=== PATIENT | female | born 1935 | race Caucasian/White ===

== ENCOUNTER 2017-03-01 17:20 | Emergency (ER) | payer MEDICARE, OTHER ==
--- NOTE | 2017-03-01 17:27 | EDM.PDOC ---
ED HPI GENERAL MEDICAL PROBLEM - General Chief Complaint: Respiratory Problem Stated Complaint: R LEG SWELLING/SOB Time Seen by Provider: 03/01/17 17:28 Source of Information: Reports: Patient, Family History Limitations: Reports: No Limitations - History of Present Illness INITIAL COMMENTS - FREE TEXT/NARRATIVE: 81-year-old female is brought to the hospital by family members are concerned about her. They identified that she is limping today and complaining of pain in her right calf and leg. When they elected her leg and it is edematous and swollen much more so than the left side. She's also complaining of increased shortness of breath on exertion. 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 She is on Coumadin chronically. I presume this is for atrial fibrillation. Family has no indication that she's ever had congestive heart failure symptoms. She did have her Coumadin time her PT/INR checked at the clinic this morning but did not receive the results. She's been going about every 3 weeks because of changes needed in dosing. She denies cough or sputum production. She denies fever or chills. No denies any orthopnea. Her concern is pain in her right leg and foot. Onset: Gradual (sounds like the problem is been going on for the last 3 days just getting worse.) Onset Date: 03/05/17 Duration: Day(s): Location: Reports: Lower Extremity, Right (foot and ankle.), Other (shortness of breath) Quality: Reports: Ache, Burning, Throbbing Severity: Moderate (right foot) Improves with: Reports: Rest (an elevation) Worsens with: Reports: Other Context: Denies: Activity, Exercise, Lifting, Sick Contact, Trauma, Other Associated Symptoms: Reports: Malaise, Shortness of Breath. Denies: No Other Symptoms, Confusion, Chest Pain, Cough, cough w sputum, Diaphoresis, Fever/ Chills, Headaches, Nausea/Vomiting, Rash, Seizure (on exertion), Weakness Treatments BRUSH OR BROOM CUTTER: Reports: Other (see below) (none.) - Related Data Allergies Allergy/AdvReac Type Severity Reaction Status Date / Time No Known Allergies Allergy Verified 09/04/15 08:33 Home Meds: Home Meds Calcium Carbonate [Calcium] 500 mg PO TID 09/04/15 [History] Lisinopril/Hydrochlorothiazide [Lisinopril-Hctz 20-25 mg Tab] 20 - 25 mg PO DAILY 09/04/15 [History] Furosemide [Lasix] 20 mg PO DAILY #30 tablet 03/01/17 [Rx] Red Yeast Rice 1 tab PO DAILY 03/01/17 [History] Warfarin [Coumadin] 2.5 mg PO SUTUTHSA 03/01/17 [History] Warfarin [Coumadin] 5 mg PO MOWEFR 03/01/17 [History] Past Medical History Cardiovascular History: Reports: Hypertension, [place], Pacemaker Other Cardiovascular History: Pacemaker Musculoskeletal History: Reports: Back Pain, Chronic (knees hips lower spine.), Osteoarthritis - Past Surgical History Head Surgeries/Procedures: Reports: None Other HEENT Surgeries/Procedures: Pt wears glasses. Social & Family History - Family History Cardiac: Reports: Hypertension Other Cardiac Family History: Pt states son has heart problems. - Tobacco Use Smoking Status *Q: Never Smoker Second Hand Smoke Exposure: No - Recreational Drug Use Recreational Drug Use: No - Living Situation & Occupation Living situation: Reports: , Alone Occupation: Retired ED ROS GENERAL - Review of Systems Review Of Systems: See Below Constitutional: Reports: Fatigue. Denies: Fever, Chills, Malaise, Weakness, Night Sweats, Diaphoresis, Decreased Appetite (increasing fatigue on minimal exertion.), Weight Loss HEENT: Reports: No Symptoms Respiratory: Reports: Shortness of Breath. Denies: Wheezing, Pleuritic Chest Pain (seems to be a little bit worse the last several days.), Cough, Sputum, Hemoptysis Cardiovascular: Reports: Blood Pressure Problem, Dyspnea on Exertion, Edema ( both lower extremities mildly. Right much more the last 3-4 days. It's only a little bit better when she wakes up in the morning.). Denies: Chest Pain, Claudication (chronic hypertension usually well-controlled with medication), Lightheadedness, Orthopnea, Palpitations (chronically), PND, Syncope Endocrine: Reports: Fatigue GI/Abdominal: Reports: Constipation (vocational problems). Denies: Abdominal Pain, Hematochezia, Melena, Stool Incontinence, Vomiting : Reports: Frequency, Incontinence (urgent stress components) Musculoskeletal: Reports: Neck Pain, Shoulder Pain, Back Pain, Foot Pain (right foot pain right ankle pain right lower leg pain which brought her to the ED today.) Skin: Reports: Bruising Neurological: Reports: No Symptoms, Difficulty Walking (due to right calf and foot and leg pain the last 3 days.) Psychiatric: Reports: No Symptoms Hematologic/Lymphatic: Reports: No Symptoms Immunologic: Reports: No Symptoms ED EXAM, GENERAL - Physical Exam Exam: See Below Exam Limited By: No Limitations General Appearance: Alert, WD/WN, No Apparent Distress, Anxious Eye Exam: Bilateral Eye: Normal Inspection Head: Atraumatic, Normocephalic Neck: Normal Inspection, Supple, Non-Tender, Full Range of Motion, Other ( because of increased jugular venous pulsations.). No: Carotid Bruit, Lymphadenopathy (L), Lymphadenopathy (R), Thyromegaly Respiratory/Chest: Chest Non-Tender, Respiratory Distress (mild tachypnea at rest 24-28/m. O2 sats 95% on room air.), Decreased Breath Sounds Cardiovascular: Regular Rate, Rhythm (100% paced rhythm on the monitor with wide -complex and 75/m), No Murmur, No Rub, JVD (4 cm. Below the angle of the mandible.), Other (martin was replaced last year due to bad battery in the first one.personal last about 7 a half years). No: Normal Peripheral Pulses Peripheral Pulses: 1+: Posterior Tibial (R), Dorsalis Pedis (R), 2+: Posterior Tibial (L), Dorsalis Pedis (L) GI/Abdominal: Normal Bowel Sounds, Soft, Non-Tender, No Organomegaly, Other ( abdominal girth limits ability to palpate solid organs. No surgical scars) Back Exam: Normal Inspection, Full Range of Motion. No: CVA Tenderness (L), CVA Tenderness (R) Extremities: Pedal Edema (right lower extremity has 3+ pitting edema to the tibial tuberosity. There is increased warmth in the right knee indicating some loss arthritic changes of particularly along the medial joint line. The ankle and foot dorsally also very warm to palpation without evidence of cellulitis. Just that there may be some soft tissue inflammation such as gout.), Joint Swelling (right ankle.), Other. No: Arm Pain, Migel's Sign Neurological: Alert (there is very mild I1 plus edema in the left lower extremity.), Oriented, CN II-XII Intact, Normal Cognition, Other (limping gait.) Psychiatric: Normal Affect, Normal Mood Skin Exam: Warm, Dry, Intact, Normal Color, No Rash EKG INTERPRETATION EKG Date: 03/01/17 Time: 17:45 Rhythm: Other (100% atrial sensed ventricular paced rhythm at 75/m.) Rate (Beats/Min): 75 [place]: Normal P-Wave: Present QRS: Wide EKG Interpretation Comments: 100% paced rhythm. No further analysis attempted. Course - Vital Signs Last Recorded V/S: Last Vital Signs Temp 36.5 C 03/01/17 17:31 Pulse 88 03/01/17 17:31 Resp 24 H 03/01/17 17:31 BP 160/80 H 03/01/17 17:31 Pulse Ox 95 03/01/17 17:31 - Orders/Labs/Meds Orders: Active Orders 24 hr Category Date Time Status EKG Documentation Completion [RC] STAT Care 03/01/17 17:35 Active Peripheral IV Care [RC] . DIRECTED Care 03/01/17 17:38 Active Sodium Chloride 0.9% [Saline Flush] Med 03/01/17 17:38 Active 10 ml FLUSH ASDIRECTED PRN Peripheral IV Insertion Adult [OM.PC] Stat Oth 03/01/17 17:38 Ordered Medication Orders Sodium Chloride (Saline Flush) 10 ml FLUSH ASDIRECTED PRN PRN Reason: Keep Vein Open Last Admin: 03/01/17 17:55 Dose: 10 ml Labs: Laboratory Tests 03/01/17 03/01/17 03/01/17 Range/Units 17:35 17:35 17:35 WBC 12.60 H (3.98-10.04) K/mm3 RBC 5.14 (3.98-5.22) M/mm3 Hgb 15.4 (11.2-15.7) gm/L Hct 46.6 H (34.1-44.9) % MCV 90.7 (79.4-94.8) fl MCH 30.0 (25.6-32.2) pg MCHC 33.0 (32.2-35.5) g/dl RDW Std Deviation 45.2 (36.4-46.3) fL Plt Count 307 (182-369) K/mm3 MPV 10.2 (9.4-12.3) fl Neutrophils % (Manual) 60 (40-60) % Band Neutrophils % 1 (0-10) % Lymphocytes % (Manual) 28 (20-40) % Atypical Lymphs % 0 % Monocytes % (Manual) 9 (2-10) % Eosinophils % (Manual) 1 (0.7-5.8) % Basophils % (Manual) 1 (0.1-1.2) Platelet Estimate Adequate Plt Morphology Comment Normal RBC Morph Comment Normal PT 37.6 H (8.0-13.0) SECONDS INR 3.20 D-Dimer, Quantitative (0.19-0.59) mg/L Sodium 142 (136-145) mEq/L Potassium 3.5 (3.5-5.1) mEq/L Chloride 104 (98-107) mEq/L Carbon Dioxide 29 (21-32) mEq/L Anion Gap 12.5 (5-15) BUN 29 H (7-18) mg/dL Creatinine 1.2 H (0.55-1.02) mg/dL Est Cr Clr Drug Dosing 31.21 mL/min Estimated GFR (MDRD) 43 (>60) mL/min BUN/Creatinine Ratio 24.2 H (14-18) Glucose 106 (83-115) mg/dL Uric Acid 7.3 H (2.6-6.0) mg/dL Calcium 9.7 (8.5-10.1) mg/dL Magnesium 1.8 (1.8-2.4) mg/dl Total Bilirubin 0.3 (0.2-1.0) mg/dL AST 39 H (15-37) U/L ALT 38 (14-59) U/L Alkaline Phosphatase 53 (46-116) U/L CK-MB (CK-2) 2.1 (0-3.6) ng/ml Troponin I < 0.017 (0.00-0.056) ng/mL C-Reactive Protein 0.3 (<1.0) mg/dL NT-Pro-B Natriuret Pep 520 H (0-450) pg/mL Total Protein 7.8 (6.4-8.2) g/dl Albumin 3.7 (3.4-5.0) g/dl Globulin 4.1 gm/dL Albumin/Globulin Ratio 0.9 L (1-2) 03/01/17 Range/Units 17:35 WBC (3.98-10.04) K/mm3 RBC (3.98-5.22) M/mm3 Hgb (11.2-15.7) gm/L Hct (34.1-44.9) % MCV (79.4-94.8) fl MCH (25.6-32.2) pg MCHC (32.2-35.5) g/dl RDW Std Deviation (36.4-46.3) fL Plt Count (182-369) K/mm3 MPV (9.4-12.3) fl Neutrophils % (Manual) (40-60) % Band Neutrophils % (0-10) % Lymphocytes % (Manual) (20-40) % Atypical Lymphs % % Monocytes % (Manual) (2-10) % Eosinophils % (Manual) (0.7-5.8) % Basophils % (Manual) (0.1-1.2) Platelet Estimate Plt Morphology Comment RBC Morph Comment PT (8.0-13.0) SECONDS INR D-Dimer, Quantitative 0.24 (0.19-0.59) mg/L Sodium (136-145) mEq/L Potassium (3.5-5.1) mEq/L Chloride (98-107) mEq/L Carbon Dioxide (21-32) mEq/L Anion Gap (5-15) BUN (7-18) mg/dL Creatinine (0.55-1.02) mg/dL Est Cr Clr Drug Dosing mL/min Estimated GFR (MDRD) (>60) mL/min BUN/Creatinine Ratio (14-18) Glucose (83-115) mg/dL Uric Acid (2.6-6.0) mg/dL Calcium (8.5-10.1) mg/dL Magnesium (1.8-2.4) mg/dl Total Bilirubin (0.2-1.0) mg/dL AST (15-37) U/L ALT (14-59) U/L Alkaline Phosphatase (46-116) U/L CK-MB (CK-2) (0-3.6) ng/ml Troponin I (0.00-0.056) ng/mL C-Reactive Protein (<1.0) mg/dL NT-Pro-B Natriuret Pep (0-450) pg/mL Total Protein (6.4-8.2) g/dl Albumin (3.4-5.0) g/dl Globulin gm/dL Albumin/Globulin Ratio (1-2) Meds: Medications Generic Name Dose Route Start Last Admin Trade Name Freq PRN Reason Stop Dose Admin Sodium Chloride 10 ml 03/01/17 17:38 03/01/17 17:55 Saline Flush FLUSH 10 ml ASDIRECTED PRN Administration Keep Vein Open Discontinued Medications Generic Name Dose Route Start Last Admin Trade Name Freq PRN Reason Stop Dose Admin Furosemide 40 mg 03/01/17 17:38 03/01/17 17:54 Lasix IVPUSH 03/01/17 17:39 40 mg NOW ONE Administration Furosemide Confirm 03/01/17 17:49 03/01/17 17:51 Lasix Administered 03/01/17 17:50 Not Given Dose 40 mg .ROUTE .[facility] ONE - Radiology Interpretation Free Text/Narrative:: 81-year-old female presents to the ED with increasing shortness of breath over the last 3-4 days or perhaps even longer. She's developed increasing pain in her right calf ankle and foot over the last 3 days. This is causing her to limp. On injuries or trauma to the foot or ankle. No history of gout. Patient is chronically anticoagulated with Coumadin did have her PT/INR checked at the clinic this morning but the results are not available to her. History suggests that she's had a pacemaker for about 10 years for unclear reason. Her ECG shows she is 100% paced rhythm at 75/m. Clinically she has increased jugular venous distention and dyspnea at rest 24-20/m. She is examining signs symptoms of congestive failure. The right leg is very tender to touch in the calf area and is somewhat worrisome for a clot although this would be unlikely if Coumadin is therapeutic. Is more likely she's suffered a soft tissue tear which is bled into the muscle causing the pain. Less likely is gout because there is increased warmth coming from the ankle and dorsal foot. Labs to be done to include a BMP and uric acid levels and magnesium. One view chest x-ray to be obtained at peripheral IV lock started given Lasix 40 mg IV. Of note she is not on any diuretics on a regular basis. - Re-Assessments/Exams Free Text/Narrative Re-Assessment/Exam: 03/01/17 18:13 chest x-ray reveals poor inspirational view. Cardiac silhouette is within normal limits. Pacemaker wires evident with pacemaker left upper quadrant of the chest. Left hemidiaphragm is somewhat more prominent than usual. Visualized portions of the lungs appear clear. 03/01/17 19:38 03/01/17 19:20: labs are back. White count is elevated at 12.60 with a normal differential 60% neutrophils and 1% band cells suggesting stress response. Hemoglobin is 15.4 hematocrit is 46.6.platelet count is normal at 307,000. Chemistry shows a sodium of 142 potassium low-normal at 3.5. Chloride 104 bicarbonate 29. Anion gap is normal at 12.5. Creatinine is 1.2 with an EGFR of 43. Glucose 106 uric acid is elevated at 7.3. This raises the possibility of gout as part of her right foot and ankle pain. AST was 39. CK-MB fraction 2.1 troponin less than 0.017 BNP mildly elevated at 520. CRP was less than 0.3. PT is 37.6 with an INR of 3.20 i.e. mildly super therapeutic INR. D-dimer was normal at 0.24. Therefore I have no exact reason for her right calf to be so sore but I suspect she has pulled a muscle in her calf either gastrocnemius or more likely the soleus since the pain is more in the midline of mid calf. It is exquisitely tender to palpation. Doppler ultrasound did not reveal any blood clots within the right lower extremity and he did not comment on any obvious hematoma within the soleus. He did comment that it was exquisitely tender to touch with the ultrasound wand. Patient doesn't want anything for pain Tylenol be taken only. Advised to place her Coumadin on hold for 2 days and then to resume as per instructed by the current Coumadin teaching nurse who phoned her earlier today she did instruct her to stop the Coumadin for one day but I feel it's more appropriate to stop for 2 days in light of likely bleeding into muscle tissue in her calf. She has a cane at home due to her ambulation and I did write a prescription for a if the pain worsens that they can pear picker through [employer].I have some suspicion that she has some component of gout uropathy in her right ankle and foot. They are quite warm to palpation but she doesn't have exquisite pain on movement of the toes or ankle. Pain is more in her calf. Would have her uric acid levels followed and if the remaining greater than 7 she should go on a medication to lower it to prevent interstitial nephritis. I'm going to place her on Lasix 20 mg once daily in the morning to help reduce some of the edema in her lower extremities which is most likely from venous insufficiency. She has mild congestive failure. Her potassium needs to be checked next week and have advised her to follow up with Chuyita Moreau whom she does not follow up with on a regular basis. She needs to follow-up with a physician on a much more regular basis and I instructed the family in this regard. Departure - Departure Time of Disposition: 19:39 Disposition: Home, Self-Care 01 Condition: Fair Clinical Impression: Dependent edema, Supratherapeutic INR Strain of calf muscle Qualifiers: Encounter type: initial encounter Laterality: right Qualified Code(s): S86.811A - Strain of other muscle(s) and tendon(s) at lower leg level, right leg , initial encounter - Discharge Information Prescriptions: Furosemide [Lasix] 20 mg PO DAILY #30 tablet Instructions: Edema, Muscle Strain, [id number] Referrals: Chuyita Moreau, [employer] [Primary Care Provider] - Forms: ED Department Discharge Additional Instructions: evaluation in the emergency room today in regards to reported shortness of breath on minimal exertion and increased swelling in the right lower extremity and on examination fluid up to the knee on the right side and mild fluid accumulation in the left side as well. Marked tenderness appreciated in the calf muscle posteriorly on examination. Lab tests revealed no evidence of any blood clots in the lungs or in the leg itself. I'm suspicious that you have pulled a muscle in your calf and is bleeding slowly in the calf muscle more so than one would anticipate because Coumadin time is too high. INR today is 3.20 and should be around 2.3-2.5. Therefore you should withhold her Coumadin dose for 2 days and then start dosing as instructed by her Coumadin clinic person today. The other thing that came back elevated was your uric acid level and I have some concerns about the pain in her ankle and foot possibly being related to gout which is from uric acid deposition in the joints. Third problem identified was a little extra fluid accumulation within the lungs i.e. mild heart failure. Pacemaker seems to be functioning normally. Therefore I think it is important to start seeing a physician on a more regular basis. At this time use her cane to try and aid her ambulation so that you don't fall. The right calf may continue to be swollen and painful for up to 10 days. If it continues to become more painful and swollen than please go pear picker a walker admit [facility] and I have written a prescription for this if needed. Tylenol for pain if needed. Just a water pill Lasix for 20 mg once daily every morning to help reduce the fluid in your legs which might help ease her pain to some degree as well. Suggest arranging follow-up appoint with Chuyita Moreau in about a week's time to have her Coumadin time checked and your uric acid level checked one more time. The uric acid level is still remaining quite high at deserve treatment with allopurinol or Uloric both of which are taken once daily to lower uric acid levels and protect the kidneys and prevent gout. In the meantime elevate her foot as much as possible for the next 2-3 days. Apply heat pack to the back of your calf one half hour out of every 4 hours during the day for the next 2-3 days. - My Orders Last 24 Hours: My Active Orders 03/01/17 17:35 EKG Documentation Completion [RC] STAT 03/01/17 17:38 Peripheral IV Care [RC] . DIRECTED Sodium Chloride 0.9% [Saline Flush] 10 ml FLUSH ASDIRECTED PRN Peripheral IV Insertion Adult [OM.PC] Stat - Assessment/Plan Last 24 Hours: My Active Orders 03/01/17 17:35 EKG Documentation Completion [RC] STAT 03/01/17 17:38 Peripheral IV Care [RC] . DIRECTED Sodium Chloride 0.9% [Saline Flush] 10 ml FLUSH ASDIRECTED PRN Peripheral IV Insertion Adult [OM.PC] Stat
[2017-03-01 17:32] VITALS: BP 160/80
[2017-03-01] MEDS ORDERED: Furosemide 40 MG/4 ML VIAL IVPUSH ONE (17:38)
[2017-03-01] MEDS ORDERED: Sodium Chloride 0.9% 10 ML Syringe FLUSH PRN (17:38)
[2017-03-01] MEDS ORDERED: Furosemide 40 MG/4 ML VIAL ONE (17:49)
--- NOTE | 2017-03-01 18:51 | CR ---
Chest: Portable view of the chest was obtained. Comparison: Previous chest x-ray of 09/04/15. Heart size appears within normal limits. Tortuous thoracic aorta is seen. Lungs are clear with no acute infiltrates. Pacemaker is noted. Bony structures show scoliosis within the spine. Impression: 1. Incidental findings. Nothing acute is appreciated. Diagnostic code #2
--- NOTE | 2017-03-01 19:41 | US ---
Right lower extremity deep venous ultrasound: Duplex and color flow imaging was obtained of the right common femoral, proximal greater saphenous, superficial femoral, popliteal, posterior tibial and peroneal veins. Left common femoral vein was also evaluated. Posterior tibial and peroneal veins were not able to be seen for compression or phasic flow but augmentation is seen within both these veins. Other veins show normal phasic flow augmentation and compression. Impression: 1. No findings of deep venous thrombosis within the right lower extremity or within the left common femoral vein. Diagnostic code #1
== END 2017-03-01 19:50 | disposition home or self-care (01) ==
LOC: JD.ED 17:20
DX: S86.811A Strain of other muscle(s) and tendon(s) at lower leg level, right leg, initial encounter (principal); I11.0 Hypertensive heart disease with heart failure; I50.9 Heart failure, unspecified; I25.2 Old myocardial infarction; R79.1 Abnormal coagulation profile; R60.0 Localized edema; M19.90 Unspecified osteoarthritis, unspecified site; Z95.0 Presence of cardiac pacemaker; Z79.01 Long term (current) use of anticoagulants; Z79.899 Other long term (current) drug therapy; X58.XXXA Exposure to other specified factors, initial encounter
CPT/HCPCS: 36415; 71010; 80053; 82553; 83735; 83880; 84484; 84550; 85025; 85379; 85610; 86140; 93005; 93971; 96374; 99285; J1940; J7050; 99284

== ENCOUNTER 2017-08-07 08:26 | Day surgery (SDC) | payer MEDICARE, OTHER ==
[~2017-08-07 08:26] MED LIST: Lactated Ringers 1,000 ML IV SCH; Lidocaine 1%/Sod Bicarbonate in NS 8.4% 1 ML Syringe IDERM PRN; Sodium Chloride 0.9% 10 ML Syringe FLUSH PRN
--- NOTE | 2017-08-07 09:08 | PCM.PREANE ---
Preanesthetic Assessment - Procedure Proposed Procedure: Diagnositic Colonoscopy - Anesthesia/Transfusion/Family Hx Anesthesia History: Prior Anesthesia Without Reaction (MAC anesthetics as well and she is aware) Family History of Anesthesia Reaction: No Transfusion History: No Prior Transfusion(s) Intubation History: Unknown - Review of Systems General: No Symptoms Pulmonary: Other (shortness of breath with activity, PE history on coumadin now ) Cardiovascular: Other (pacemaker, echo 03/14 EF 65%) Gastrointestinal: No Symptoms Neurological: No Symptoms Other: Reports: None - Physical Assessment NPO Status Date: 08/06/17 NPO Status Time: 18:00 O2 Sat by Pulse Oximetry: 92 Respiratory Rate: 20 Vital Signs: Last Vital Signs Temp 37.2 C 08/07/17 08:30 Pulse 80 08/07/17 08:30 Resp 20 08/07/17 08:30 BP 120/56 L 08/07/17 08:30 Pulse Ox 92 L 08/07/17 08:30 Height: 1.63 m Weight: 95.708 kg ASA Class: 3 Mental Status: Alert & Oriented x3 Airway Class: Mallampati = 1 Dentition: Reports: Dentures (uppers and lowers ) Thyro-Mental Finger Breadths: 3 Mouth Opening Finger Breadths: 5 ROM/Head Extension: Full Lungs: Clear to Auscultation, Normal Respiratory Effort Cardiovascular: Regular Rate, Regular Rhythm - Allergies Allergies/Adverse Reactions: Allergies Allergy/AdvReac Type Severity Reaction Status Date / Time No Known Allergies Allergy Verified 08/04/17 15:56 - Blood Blood Available: No - Acknowledgements Anesthesia Type Planned: MAC Pt an Appropriate Candidate for the Planned Anesthesia: Yes Alternatives and Risks of Anesthesia Discussed w Pt/Guardian: Yes Pt/Guardian Understands and Agrees with Anesthesia Plan: Yes PreAnesthesia Questionnaire Cardiovascular History: Reports: Hypertension, [place], Pacemaker Other Cardiovascular History: Pacemaker Respiratory History: Reports: PE Gastrointestinal History: Reports: None Genitourinary History: Reports: None MACHINE ACCOUNTANT History: Reports: None Musculoskeletal History: Reports: Back Pain, Chronic, Osteoarthritis Neurological History: Reports: None Psychiatric History: Reports: None Endocrine/Metabolic History: Reports: None Hematologic History: Reports: None Immunologic History: Reports: None Oncologic (Cancer) History: Reports: None Dermatologic History: Reports: None - Past Surgical History Head Surgeries/Procedures: Reports: None HEENT Surgical History: Reports: Tonsillectomy Other HEENT Surgeries/Procedures: Pt wears glasses. Cardiovascular Surgical History: Reports: Pacer Respiratory Surgical History: Reports: None GI Surgical History: Reports: None Female Surgical History: Reports: None Male Surgical History: Reports: None Endocrine Surgical History: Reports: None Neurological Surgical History: Reports: None Musculoskeletal Surgical History: Reports: Other (See Below) Other Musculoskeletal Surgeries/Procedures:: ankle fracture with surgery Oncologic Surgical History: Reports: None Dermatological Surgical History: Reports: None - SUBSTANCE USE Smoking Status *Q: Never Smoker Second Hand Smoke Exposure: No Recreational Drug Use History: No - HOME MEDS Home Medications: Home Meds Calcium Carbonate [Calcium] 500 mg PO TID 09/04/15 [History] Lisinopril/Hydrochlorothiazide [Lisinopril-Hctz 20-25 mg Tab] 20 - 25 mg PO DAILY 09/04/15 [History] Furosemide [Lasix] 20 mg PO DAILY #30 tablet 03/01/17 [Rx] Red Yeast Rice 1 tab PO DAILY 03/01/17 [History] Warfarin [Coumadin] 2.5 mg PO SUTUTHSA 03/01/17 [History] Warfarin [Coumadin] 5 mg PO MOWEFR 03/01/17 [History] Aloe Vera 25 mg PO DAILY 08/04/17 [History] atorvaSTATin [Lipitor] 10 mg PO DAILY 08/04/17 [History] - CURRENT (IN HOUSE) MEDS Current Meds: Current Medications Lactated Ringer's (Ringers, Lactated) 1,000 mls @ 125 mls/hr IV ASDIRECTED MITRA Stop: 08/07/17 23:00 Last Admin: 08/07/17 08:48 Dose: 125 mls/hr Lidocaine/Sodium Bicarbonate (Buffered Lidocaine 1% In Ns 8.4%) 0.25 ml IDERM ONETIME PRN PRN Reason: Prior to IV Start Stop: 08/07/17 18:00 Last Admin: 08/07/17 08:48 Dose: 0.25 ml Sodium Chloride (Saline Flush) 10 ml FLUSH ASDIRECTED PRN PRN Reason: Keep Vein Open Stop: 08/07/17 18:00
[2017-08-07] MEDS ORDERED: Propofol 200 MG/20 ML SDV ONE (09:23)
[2017-08-07] MEDS ORDERED: Lidocaine 1% 4 ML ONE (09:23)
--- NOTE | 2017-08-07 09:50 | PCM.OPNOTE ---
- General Post-Op/Procedure Note Date of Surgery/Procedure: 08/07/17 Operative Procedure(s): colonosocopy to cecum Pre Op Diagnosis: guaiac positive stools Post-Op Diagnosis: Same Anesthesia Technique: MAC Primary Surgeon: Chris Patel EBL in mLs: 0 Complications: None Condition: Good
--- NOTE | 2017-08-07 10:01 | PCM48HPAN ---
Post Anesthesia Note - EVALUATION WITHIN 48HRS OF ANESTHETIC Vital Signs in Normal Range: Yes Patient Participated in Evaluation: Yes Respiratory Function Stable: Yes Airway Patent: Yes Cardiovascular Function Stable: Yes Hydration Status Stable: Yes Pain Control Satisfactory: Yes Nausea and Vomiting Control Satisfactory: Yes Mental Status Recovered: Yes Pulse Rate: 64 SaO2: 91 Resp Rate: 12 Temperature: 36.3 C Blood Pressure: 102/62
[2017-08-07 10:02] VITALS: BP 102/62
--- NOTE | 2017-08-08 07:08 | OR ---
DATE OF OPERATION: 08/08/2015 SURGEON: Chris Patel MD PREOPERATIVE DIAGNOSIS: Guaiac-positive stools. POSTOPERATIVE DIAGNOSIS: Guaiac-positive stools. OPERATION PERFORMED: Colonoscopy to cecum. FINDINGS: Internal hemorrhoids were noted and occasional diverticulum. There were no angiodysplasias, neoplasias, large tumor masses, or ulcerations. ANESTHESIA: Done under IV sedation. DESCRIPTION OF PROCEDURE: The patient was taken to the endoscopy room, placed in a supine position, connected to monitoring equipment, and given IV sedation. She was placed in the left lateral position. Perianal area showed external hemorrhoids. Rectal exam showed good sphincter tone. A video Olympus colonoscope was then introduced into the rectum and threaded up without problem to the cecum, where the appendicular orifice and ileocecal valve were noted. Prep was excellent. [place] cleansing score grade A. The scope was slowly withdrawn showing the cecum, ascending colon, transverse colon, descending colon, sigmoid colon, and rectum. Retroflexed view was done. The patient tolerated the procedure, sent to recovery room in a stable condition, and will be followed up in the clinic. ESTIMATED BLOOD LOSS: MMODAL /[id number]
== END 2017-08-07 10:45 | disposition home or self-care (01) ==
LOC: JD.SDS 08:26
PROVIDERS: ATTEND Surgery
DX: K64.8 Other hemorrhoids (principal); K64.4 Residual hemorrhoidal skin tags; K57.30 Diverticulosis of large intestine without perforation or abscess without bleeding; I10 Essential (primary) hypertension; E78.5 Hyperlipidemia, unspecified; M19.90 Unspecified osteoarthritis, unspecified site; I25.2 Old myocardial infarction; Z95.0 Presence of cardiac pacemaker; Z86.711 Personal history of pulmonary embolism; Z90.89 Acquired absence of other organs; Z79.899 Other long term (current) drug therapy; Z79.01 Long term (current) use of anticoagulants
CPT/HCPCS: 36415; 45378; 85610; J7120; J2704

== ENCOUNTER 2020-02-14 10:49 | Emergency (ER) | payer MEDICARE, OTHER ==
[2020-02-14 10:58] VITALS: BP 139/65; PULSE 76
--- NOTE | 2020-02-14 11:13 | EDM.PDOC ---
ED HPI GENERAL MEDICAL PROBLEM - General Chief Complaint: General Stated Complaint: [facility] Time Seen by Provider: 02/14/20 11:13 Source of Information: Reports: Patient, EMS History Limitations: Reports: No Limitations - History of Present Illness INITIAL COMMENTS - FREE TEXT/NARRATIVE: 84-year-old female presents to the ED per [facility]. She reports that she went down to the floor in her suite at about 0330 hrs. this morning and laid on the floor all night long. The history is a little bit confusing. It appears that she got up to void but before she could get to the bathroom she lost total control of her bladder. She is not sure how she ended up on the floor but she states she did not trip or lose her balance. She may have gotten dizzy or ort hostatic. She does not have any signs or symptoms of urinary tract infection such as dysuria. She always has urinary frequency and some urgency component. However she reports that she is very rarely incontinent. She was told that they thought she had a fever when they first picked her up but she is not febrile at this time. She denies hitting her head she remembers all events during the night. Someone came to knock on her sweet door this morning and this is how she was found on the floor. She did crawl for period of time in her home. She has not gotten up and walk since her fall to the floor however. Onset: Today, Sudden Onset Date: 02/14/20 Onset Time: 03:30 Duration: Hour(s): Location: Reports: Generalized (Sense of weakness.) Quality: Reports: Other Severity: Moderate (Weakness) Improves with: Reports: None Worsens with: Reports: None Context: Reports: Other (Fall to the floor at home. Suspect orthostasis as there is no apparent injuries from the fall.). Denies: Activity, Exercise, Lifting, Sick Contact, Trauma Associated Symptoms: Reports: Malaise, Weakness. Denies: Confusion, Chest Pain, Cough, cough w sputum, Diaphoresis, Fever/Chills, Headaches, Loss of Appetite, Nausea/Vomiting, Rash, Seizure, Shortness of Breath, Syncope Treatments RN TRANSITIONAL: Reports: Other (see below) (Neurolysed none.) Back Pain Score (Numeric/FACES): 6 - Related Data Allergies Allergy/AdvReac Type Severity Reaction Status Date / Time No Known Allergies Allergy Verified 02/14/20 10:58 Home Meds: Home Meds Calcium Carbonate [Calcium] 500 mg PO TID 09/04/15 [History] Lisinopril/Hydrochlorothiazide [Lisinopril-Hctz 20-25 mg Tab] 20 - 25 mg PO DAILY 09/04/15 [History] Furosemide [Lasix] 20 mg PO DAILY #30 tablet 03/01/17 [Rx] Red Yeast Rice 1 tab PO DAILY 03/01/17 [History] Warfarin [Coumadin] 2.5 mg PO SUTUTHSA 03/01/17 [History] Warfarin [Coumadin] 5 mg PO MOWEFR 03/01/17 [History] Aloe Vera 25 mg PO DAILY 08/04/17 [History] atorvaSTATin [Lipitor] 10 mg PO DAILY 08/04/17 [History] Past Medical History Cardiovascular History: Reports: Hypertension, [place], Pacemaker Other Cardiovascular History: Pacemaker Respiratory History: Reports: PE, Other (See Below) (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 This is the reason apparently she is on Coumadin long-term) Immunologic History: Reports: None Oncologic (Cancer) History: Reports: None Dermatologic History: Reports: None - Past Surgical History Head Surgeries/Procedures: Reports: None HEENT Surgical History: Reports: Tonsillectomy Other HEENT Surgeries/Procedures: Pt wears glasses. Cardiovascular Surgical History: Reports: Pacer Respiratory Surgical History: Reports: None GI Surgical History: Reports: None Female Surgical History: Reports: None Male Surgical History: Reports: None Endocrine Surgical History: Reports: None Neurological Surgical History: Reports: None Musculoskeletal Surgical History: Reports: Other (See Below) Other Musculoskeletal Surgeries/Procedures:: ankle fracture with surgery Oncologic Surgical History: Reports: None Dermatological Surgical History: Reports: None Social & Family History - Family History Cardiac: Reports: Hypertension Other Cardiac Family History: Pt states son has heart problems. - Caffeine Use Caffeine Use: Reports: Coffee - Living Situation & Occupation Living situation: Reports: , Alone Occupation: Retired ED ROS GENERAL - Review of Systems Review Of Systems: See Below Constitutional: Reports: Malaise, Weakness, Fatigue. Denies: Fever, Chills HEENT: Reports: Glasses Respiratory: Reports: Shortness of Breath. Denies: Wheezing, Pleuritic Chest Pain, Cough, Sputum Cardiovascular: Reports: Blood Pressure Problem, Dyspnea on Exertion (Lower extremity edema. Venous stasis dermatitis), Edema, Lightheadedness, Palpitations. Denies: Chest Pain, Claudication, Orthopnea Endocrine: Reports: Fatigue (Days no.) GI/Abdominal: Reports: Constipation. Denies: Nausea, Stool Incontinence, Vomiting : Reports: Frequency, Incontinence (Both urge and stress components.). Denies: Dysuria, Flank Pain Musculoskeletal: Reports: Joint Pain (Has arthritic changes in both knees both hips low back pain and neck and shoulder pain at times.) Skin: Reports: Bruising Neurological: Reports: Dizziness, Weakness (Sure if she got dizzy or orthostatic this morning.). Denies: Confusion (Is on Coumadin.), Headache, Numbness, Syncope, Tingling Psychiatric: Reports: No Symptoms Hematologic/Lymphatic: Reports: No Symptoms Immunologic: Reports: No Symptoms ED EXAM, GENERAL - Physical Exam Exam: See Below Exam Limited By: No Limitations General Appearance: Alert, WD/WN, No Apparent Distress, Anxious, Other (Is about the whole event. Temperature is 36.1. Heart rate 76 sinus respiratory 16 BP 1 3965 sats are 94 to 95% room air) Eye Exam: Bilateral Eye: Normal Inspection, PERRL Throat/Mouth: Other (Lips are extremely dry. Tongue and mouth is extremely dry as well.). No: Normal Lips (Is extremely dry and coated. Oropharynx is very dry as well.) Head: Atraumatic, Normocephalic, Other (No outward signs of head or facial trauma.) Neck: Normal Inspection, Supple, Non-Tender, Limited Range of Motion. No: Carotid Bruit, Lymphadenopathy (L), Lymphadenopathy (R) Respiratory/Chest: No Respiratory Distress, Lungs Clear, Normal Breath Sounds, Chest Non-Tender, Other (Pain on firm compression of the sternum and ribs.) Cardiovascular: Regular Rate, Rhythm, No Gallop, No Murmur, No Rub, Other (Pacemaker left upper anterior chest. She states is been replaced x1.). No: Normal Peripheral Pulses, No Edema Peripheral Pulses: 1+: Posterior Tibial (L), Posterior Tibial (R), Dorsalis Pedis (L), Dorsalis Pedis (R), 2+: Carotid (L), Carotid (R) GI/Abdominal: Normal Bowel Sounds, Soft, Non-Tender, No Organomegaly, No Abnormal Bruit, No Mass, Pelvis Stable (Female) Exam: Other (Mild intertrigo in the groins.) Back Exam: Normal Inspection, Decreased Range of Motion. No: CVA Tenderness (L), CVA Tenderness (R) Extremities: Other (She has a erythema swelling to her right ulnar wrist over the ulnar styloid process which is nonpainful. She has some mild erythema over the left medial knee and patella. She has very limited range of motion of both hips with severe restriction of internal/external rotation combined with significant arthritis similarly both knees are showing arthritic change. She has bilateral venous stasis dermatitis in both lower extremities with an old healed ulcer left anterior lower tibia.) Psychiatric: Normal Affect, Normal Mood, Anxious Skin Exam: Warm (Mild anxiety), Dry, Intact, Other (Bilateral venous stasis dermatitis both lower extremities from knees to ankles.) EKG INTERPRETATION EKG Date: 02/14/20 Time: 11:54 Rhythm: Other (Atrial paced rhythm at 75/min) Rate (Beats/Min): 75 Callahan: Normal P-Wave: Enlarged (Left atrial hypertrophy) QRS: LBBB QT: Prolonged (Moderately prolonged) Course - Vital Signs Last Recorded V/S: Last Vital Signs Temp 36.8 C 02/14/20 15:30 Pulse 76 02/14/20 10:55 Resp 16 02/14/20 10:55 BP 139/65 02/14/20 10:55 Pulse Ox 94 L 02/14/20 10:55 - Orders/Labs/Meds Orders: Active Orders 24 hr Category Date Time Status Blood Glucose Check, Bedside [RC] ONETIME Care 02/14/20 11:12 Active EKG Documentation Completion [RC] STAT Care 02/14/20 11:11 Active CULTURE BLOOD [BC] Stat Lab 02/14/20 11:35 Received CULTURE BLOOD [BC] Stat Lab 02/14/20 11:50 Received CULTURE URINE [RM] Routine Lab 02/14/20 14:40 Received Dextrose 5%-0.9% NaCl [Dextrose 5%-Normal Saline] 1,000 Med 02/14/20 11:15 Active ml IV ASDIRECTED Blood Culture x2 Reflex Set [OM.PC] Stat Oth 02/14/20 11:12 Ordered Medication Orders Dextrose/Sodium Chloride (Dextrose 5%-Normal Saline) 1,000 mls @ 100 mls/hr IV ASDIRECTED MITRA Last Admin: 02/14/20 11:59 Dose: 500 mls/hr Documented by: ROBERT Labs: Laboratory Tests 02/14/20 02/14/20 02/14/20 Range/Units 11:35 11:35 11:35 WBC 17.01 H (3.98-10.04) K/mm3 RBC 5.41 H (3.98-5.22) M/mm3 Hgb 16.1 H (11.2-15.7) gm/dl Hct 49.5 H (34.1-44.9) % MCV 91.5 (79.4-94.8) fl MCH 29.8 (25.6-32.2) pg MCHC 32.5 (32.2-35.5) g/dl RDW Std Deviation 47.2 H (36.4-46.3) fL Plt Count 255 (182-369) K/mm3 MPV 10.0 (9.4-12.3) fl Neut % (Auto) 85.0 H (34.0-71.1) % Lymph % (Auto) 7.5 L (19.3-51.7) % [place] % (Auto) 7.1 (4.7-12.5) % Eos % (Auto) 0.1 L (0.7-5.8) Baso % (Auto) 0.1 (0.1-1.2) % Neut # (Auto) 14.47 H (1.56-6.13) K/mm3 Lymph # (Auto) 1.27 (1.18-3.74) K/mm3 [place] # (Auto) 1.21 H (0.24-0.36) K/mm3 Eos # (Auto) 0.01 L (0.04-0.36) K/mm3 Baso # (Auto) 0.01 (0.01-0.08) K/mm3 Manual Slide Review Abnormal smear ESR (0-20) mm/hr PT 16.9 H (9.7-11.7) SECONDS INR 1.59 APTT 35 H (22-31) SECONDS Sodium 142 (136-145) mEq/L Potassium 3.7 (3.5-5.1) mEq/L Chloride 104 (98-107) mEq/L Carbon Dioxide 29 (21-32) mEq/L Anion Gap 12.7 (5-15) BUN 26 H (7-18) mg/dL Creatinine 1.1 H (0.55-1.02) mg/dL Est Cr Clr Drug Dosing 32.29 mL/min Estimated GFR (MDRD) 47 (>60) mL/min BUN/Creatinine Ratio 23.6 H (14-18) Glucose 121 H (83-115) mg/dL POC Glucose (83-110) mg/dL Calcium 9.3 (8.5-10.1) mg/dL Magnesium 2.3 (1.8-2.4) mg/dl Ferritin (8-252) ng/ml Total Bilirubin 1.4 H (0.2-1.0) mg/dL AST 151 H (15-37) U/L ALT 65 H (14-59) U/L Alkaline Phosphatase 53 (46-116) U/L Lactate Dehydrogenase (81-234) U/L Creatine Kinase 4337 H (26-192) U/L CK-MB (CK-2) 23.0 H (0-3.6) ng/ml Troponin I 0.217 H* (0.00-0.056) ng/mL C-Reactive Protein 18.3 H* (<1.0) mg/dL NT-Pro-B Natriuret Pep (0-450) pg/mL Total Protein 7.5 (6.4-8.2) g/dl Albumin 3.2 L (3.4-5.0) g/dl Globulin 4.3 gm/dL Albumin/Globulin Ratio 0.7 L (1-2) Urine Color (Yellow) Urine Appearance (Clear) Urine pH (5.0-8.0) Ur Specific [place] (1.005-1.030) Urine Protein (Negative) Urine Glucose (UA) (Negative) Urine Ketones (Negative) Urine Occult Blood (Negative) Urine Nitrite (Negative) Urine Bilirubin (Negative) Urine Urobilinogen (0.2-1.0) Ur Leukocyte Esterase (Negative) Urine RBC (0-5) /hpf Urine WBC (0-5) /hpf Ur Squamous Epith Cells (0-5) /hpf Urine Bacteria (FEW) /hpf Urine Mucus (FEW) /hpf SARS-CoV-2 RNA (OLGA) (NEGATIVE) 02/14/20 02/14/20 02/14/20 Range/Units 11:35 11:35 11:35 WBC (3.98-10.04) K/mm3 RBC (3.98-5.22) M/mm3 Hgb (11.2-15.7) gm/dl Hct (34.1-44.9) % MCV (79.4-94.8) fl MCH (25.6-32.2) pg MCHC (32.2-35.5) g/dl RDW Std Deviation (36.4-46.3) fL Plt Count (182-369) K/mm3 MPV (9.4-12.3) fl Neut % (Auto) (34.0-71.1) % Lymph % (Auto) (19.3-51.7) % [place] % (Auto) (4.7-12.5) % Eos % (Auto) (0.7-5.8) Baso % (Auto) (0.1-1.2) % Neut # (Auto) (1.56-6.13) K/mm3 Lymph # (Auto) (1.18-3.74) K/mm3 [place] # (Auto) (0.24-0.36) K/mm3 Eos # (Auto) (0.04-0.36) K/mm3 Baso # (Auto) (0.01-0.08) K/mm3 Manual Slide Review ESR 33 H (0-20) mm/hr PT (9.7-11.7) SECONDS INR APTT (22-31) SECONDS Sodium (136-145) mEq/L Potassium (3.5-5.1) mEq/L Chloride (98-107) mEq/L Carbon Dioxide (21-32) mEq/L Anion Gap (5-15) BUN (7-18) mg/dL Creatinine (0.55-1.02) mg/dL Est Cr Clr Drug Dosing mL/min Estimated GFR (MDRD) (>60) mL/min BUN/Creatinine Ratio (14-18) Glucose (83-115) mg/dL POC Glucose (83-110) mg/dL Calcium (8.5-10.1) mg/dL Magnesium (1.8-2.4) mg/dl Ferritin (8-252) ng/ml Total Bilirubin (0.2-1.0) mg/dL AST (15-37) U/L ALT (14-59) U/L Alkaline Phosphatase (46-116) U/L Lactate Dehydrogenase 514 H (81-234) U/L Creatine Kinase (26-192) U/L CK-MB (CK-2) (0-3.6) ng/ml Troponin I (0.00-0.056) ng/mL C-Reactive Protein (<1.0) mg/dL NT-Pro-B Natriuret Pep 8155 H (0-450) pg/mL Total Protein (6.4-8.2) g/dl Albumin (3.4-5.0) g/dl Globulin gm/dL Albumin/Globulin Ratio (1-2) Urine Color (Yellow) Urine Appearance (Clear) Urine pH (5.0-8.0) Ur Specific [place] (1.005-1.030) Urine Protein (Negative) Urine Glucose (UA) (Negative) Urine Ketones (Negative) Urine Occult Blood (Negative) Urine Nitrite (Negative) Urine Bilirubin (Negative) Urine Urobilinogen (0.2-1.0) Ur Leukocyte Esterase (Negative) Urine RBC (0-5) /hpf Urine WBC (0-5) /hpf Ur Squamous Epith Cells (0-5) /hpf Urine Bacteria (FEW) /hpf Urine Mucus (FEW) /hpf SARS-CoV-2 RNA (OLGA) (NEGATIVE) 02/14/20 02/14/20 02/14/20 Range/Units 11:35 13:25 14:04 WBC (3.98-10.04) K/mm3 RBC (3.98-5.22) M/mm3 Hgb (11.2-15.7) gm/dl Hct (34.1-44.9) % MCV (79.4-94.8) fl MCH (25.6-32.2) pg MCHC (32.2-35.5) g/dl RDW Std Deviation (36.4-46.3) fL Plt Count (182-369) K/mm3 MPV (9.4-12.3) fl Neut % (Auto) (34.0-71.1) % Lymph % (Auto) (19.3-51.7) % [place] % (Auto) (4.7-12.5) % Eos % (Auto) (0.7-5.8) Baso % (Auto) (0.1-1.2) % Neut # (Auto) (1.56-6.13) K/mm3 Lymph # (Auto) (1.18-3.74) K/mm3 [place] # (Auto) (0.24-0.36) K/mm3 Eos # (Auto) (0.04-0.36) K/mm3 Baso # (Auto) (0.01-0.08) K/mm3 Manual Slide Review ESR (0-20) mm/hr PT (9.7-11.7) SECONDS INR APTT (22-31) SECONDS Sodium (136-145) mEq/L Potassium (3.5-5.1) mEq/L Chloride (98-107) mEq/L Carbon Dioxide (21-32) mEq/L Anion Gap (5-15) BUN (7-18) mg/dL Creatinine (0.55-1.02) mg/dL Est Cr Clr Drug Dosing mL/min Estimated GFR (MDRD) (>60) mL/min BUN/Creatinine Ratio (14-18) Glucose (83-115) mg/dL POC Glucose 186 H (83-110) mg/dL Calcium (8.5-10.1) mg/dL Magnesium (1.8-2.4) mg/dl Ferritin 542 H (8-252) ng/ml Total Bilirubin (0.2-1.0) mg/dL AST (15-37) U/L ALT (14-59) U/L Alkaline Phosphatase (46-116) U/L Lactate Dehydrogenase (81-234) U/L Creatine Kinase (26-192) U/L CK-MB (CK-2) (0-3.6) ng/ml Troponin I (0.00-0.056) ng/mL C-Reactive Protein (<1.0) mg/dL NT-Pro-B Natriuret Pep (0-450) pg/mL Total Protein (6.4-8.2) g/dl Albumin (3.4-5.0) g/dl Globulin gm/dL Albumin/Globulin Ratio (1-2) Urine Color (Yellow) Urine Appearance (Clear) Urine pH (5.0-8.0) Ur Specific [place] (1.005-1.030) Urine Protein (Negative) Urine Glucose (UA) (Negative) Urine Ketones (Negative) Urine Occult Blood (Negative) Urine Nitrite (Negative) Urine Bilirubin (Negative) Urine Urobilinogen (0.2-1.0) Ur Leukocyte Esterase (Negative) Urine RBC (0-5) /hpf Urine WBC (0-5) /hpf Ur Squamous Epith Cells (0-5) /hpf Urine Bacteria (FEW) /hpf Urine Mucus (FEW) /hpf SARS-CoV-2 RNA (OLGA) Negative (NEGATIVE) 02/14/20 02/14/20 Range/Units 14:40 16:27 WBC (3.98-10.04) K/mm3 RBC (3.98-5.22) M/mm3 Hgb (11.2-15.7) gm/dl Hct (34.1-44.9) % MCV (79.4-94.8) fl MCH (25.6-32.2) pg MCHC (32.2-35.5) g/dl RDW Std Deviation (36.4-46.3) fL Plt Count (182-369) K/mm3 MPV (9.4-12.3) fl Neut % (Auto) (34.0-71.1) % Lymph % (Auto) (19.3-51.7) % [place] % (Auto) (4.7-12.5) % Eos % (Auto) (0.7-5.8) Baso % (Auto) (0.1-1.2) % Neut # (Auto) (1.56-6.13) K/mm3 Lymph # (Auto) (1.18-3.74) K/mm3 [place] # (Auto) (0.24-0.36) K/mm3 Eos # (Auto) (0.04-0.36) K/mm3 Baso # (Auto) (0.01-0.08) K/mm3 Manual Slide Review ESR (0-20) mm/hr PT (9.7-11.7) SECONDS INR APTT (22-31) SECONDS Sodium (136-145) mEq/L Potassium (3.5-5.1) mEq/L Chloride (98-107) mEq/L Carbon Dioxide (21-32) mEq/L Anion Gap (5-15) BUN (7-18) mg/dL Creatinine (0.55-1.02) mg/dL Est Cr Clr Drug Dosing mL/min Estimated GFR (MDRD) (>60) mL/min BUN/Creatinine Ratio (14-18) Glucose (83-115) mg/dL POC Glucose (83-110) mg/dL Calcium (8.5-10.1) mg/dL Magnesium (1.8-2.4) mg/dl Ferritin (8-252) ng/ml Total Bilirubin (0.2-1.0) mg/dL AST (15-37) U/L ALT (14-59) U/L Alkaline Phosphatase (46-116) U/L Lactate Dehydrogenase (81-234) U/L Creatine Kinase (26-192) U/L CK-MB (CK-2) 11.5 H (0-3.6) ng/ml Troponin I 0.146 H* (0.00-0.056) ng/mL C-Reactive Protein (<1.0) mg/dL NT-Pro-B Natriuret Pep (0-450) pg/mL Total Protein (6.4-8.2) g/dl Albumin (3.4-5.0) g/dl Globulin gm/dL Albumin/Globulin Ratio (1-2) Urine Color Yellow (Yellow) Urine Appearance Clear (Clear) Urine pH 5.5 (5.0-8.0) Ur Specific [place] > or = 1.030 (1.005-1.030) Urine Protein 1+ H (Negative) Urine Glucose (UA) Negative (Negative) Urine Ketones 1+ H (Negative) Urine Occult Blood 2+ H (Negative) Urine Nitrite Negative (Negative) Urine Bilirubin Negative (Negative) Urine Urobilinogen 0.2 (0.2-1.0) Ur Leukocyte Esterase Negative (Negative) Urine RBC 5-10 H (0-5) /hpf Urine WBC 5-10 H (0-5) /hpf Ur Squamous Epith Cells 5-10 H (0-5) /hpf Urine Bacteria Few (FEW) /hpf Urine Mucus Few (FEW) /hpf SARS-CoV-2 RNA (OLGA) (NEGATIVE) Meds: Medications Generic Name Dose Route Start Last Admin Trade Name Freq PRN Reason Stop Dose Admin Dextrose/Sodium Chloride 1,000 mls @ 100 mls/hr 02/14/20 11:15 02/14/20 11:59 Dextrose 5%-Normal Saline IV 500 mls/hr ASDIRECTED MITRA Administration Discontinued Medications Generic Name Dose Route Start Last Admin Trade Name Freq PRN Reason Stop Dose Admin Acetaminophen 650 mg 02/14/20 15:02 02/14/20 15:30 Tylenol PO 02/14/20 15:03 650 mg ONETIME ONE Administration Aspirin 324 mg 02/14/20 13:18 02/14/20 13:39 Aspirin PO 02/14/20 13:19 324 mg ONETIME ONE Administration Furosemide 40 mg 02/14/20 13:56 02/14/20 15:30 Lasix IVPUSH 02/14/20 13:57 40 mg NOW ONE Administration - Radiology Interpretation Free Text/Narrative:: 84-year-old female presents to the ED per [facility] after being found lying on the floor of her suite this morning. It is unclear who checked on her this morning and found her on the floor. She knows that she was on the floor since 0330 hrs. this morning. She is not exactly sure how she got to the floor. She indicates that she lost control of her bladder before she can get to the bathroom. I suspect she may well of suffered orthostatic hypotension a letter self down to the floor fairly easily that she has no bruising or indications of injury. She states she was alert and oriented and did not lose consciousness. Neuro exam is grossly normal at this point time. She has not yet walked. She is very dry. She will have IV fluids --D5 normal saline at 500 mils per hour. She may eat and drink per normal. Routine labs to be collected including a urine by catheterization. Chest x-ray. Blood cultures x2. - Re-Assessments/Exams Free Text/Narrative Re-Assessment/Exam: 02/14/20 13:11White count is elevated at 17.01 with 85% neutrophils no bands cells on the slide. Hemoglobin is 16.1 with hematocrit of 49.5 suggesting volume depletion and hemoconcentration. Platelet count normal at 10 55,000. PT is 16.9 with an INR of 1.59. This is subtherapeutic INR PTT is 35. Sodium 142 with a potassium of 3.7. Chloride 104 with a bicarb of 29. Anion gap is 12.7. BUN is 26 with a creatinine of 1.1. GFR is 47. BUN creatinine ratio is elevated at 23.6. Glucose is 121. Calcium 9.3 magnesium 2.3. Bilirubin is elevated at 1.4 AST elevated 151 ALT is 65 alk phosphatase is 53. CPK is 4337 felt to be elevated from her falls at home. CK-MB fraction however is elevated at 23.0 and a troponin I is elevated at 0.217 suggesting recent myocardial infarction. C-reactive protein is 18.3 BNP is 8155 total protein 7.5 albumin 3.2. Covid- 19 screen will be done at this time. She will be given Lasix 40 mg IV. 02/14/20 13:17 I did discuss the findings with the patient and she is interested in following up with cardiology services due to evidence of acute recent myocardial infarction. I will wait for her COVID-19 screen to come back before contacting [facility] [place]. Have turned her IV down to 100 mils per hour of normal saline from 500 mils per hour as she is dry but in significant congestive failure. 02/14/20 14:41 COVID-19 is negative. I have spoken with -- pull over machine operator in [facility] and she has asked that we interrogate her pacemaker . repeat temp is elevated at 98.2. Will give Tylenol 650mg po for fever. 02/14/20 15:35 Urinalysis shows 1+ proteinuria 1+ ketones 2+ occult blood negative leukocyte Estrace 5-10 RBCs 5-10 WBCs and 5-10 squamous epithelial cells per high-power field. Few bacteria appreciated. A urine culture will be ordered. 02/14/20 16:15 and has been accepted at [facility] [place] by Dr. Jesse Whitmore the emergency department at [facility]. We have been speaking with --Department of cardiology as well. It is unclear whether or not the patient has had a myocardial infarction. Going to have a repeat serum troponin and CK-MB fraction drawn before she leaves the department. Free Text/Narrative Re-Assessment/Exam: 02/14/20 17:52 Second set of cardiac markers show the CK-MB fraction has dropped from 23.0-11.5 and the troponin has dropped from 0.217-0.146 Departure - Departure Time of Disposition: 17:30 Disposition: DC/Tfer to [facility] Condition: Fair Clinical Impression: Syncope and collapse, Elevated troponin I level Congestive heart failure Qualifiers: Heart failure type: unspecified Heart failure chronicity: acute on chronic Qual ified Code(s): I50.9 - Heart failure, unspecified - Discharge Information *PRESCRIPTION DRUG MONITORING PROGRAM REVIEWED*: Not Applicable *COPY OF PRESCRIPTION DRUG MONITORING REPORT IN PATIENT RAJNI: Not Applicable Referrals: PCP,None [Ordering Only Provider] - Forms: ED Department Discharge Sepsis Event Note (ED) - Evaluation Sepsis Screening Result: No Definite Risk - Focused Exam Vital Signs: Vital Signs Temp Temp Temp Pulse Resp BP Pulse Ox 02/14/20 15:30 36.8 C 02/14/20 15:00 36.8 C 02/14/20 10:55 36.1 C 76 16 139/65 94 L - My Orders Last 24 Hours: My Active Orders 02/14/20 11:11 EKG Documentation Completion [RC] STAT 02/14/20 11:12 Blood Glucose Check, Bedside [RC] ONETIME Blood Culture x2 Reflex Set [OM.PC] Stat 02/14/20 11:15 Dextrose 5%-0.9% NaCl [Dextrose 5%-Normal Saline] 1,000 ml IV ASDIRECTED 02/14/20 11:35 CULTURE BLOOD [BC] Stat 02/14/20 11:50 CULTURE BLOOD [BC] Stat 02/14/20 14:40 CULTURE URINE [RM] Routine - Assessment/Plan Last 24 Hours: My Active Orders 02/14/20 11:11 EKG Documentation Completion [RC] STAT 02/14/20 11:12 Blood Glucose Check, Bedside [RC] ONETIME Blood Culture x2 Reflex Set [OM.PC] Stat 02/14/20 11:15 Dextrose 5%-0.9% NaCl [Dextrose 5%-Normal Saline] 1,000 ml IV ASDIRECTED 09/18/20 11:35 CULTURE BLOOD [BC] Stat 02/14/20 11:50 CULTURE BLOOD [BC] Stat 02/14/20 14:40 CULTURE URINE [RM] Routine
[2020-02-14] MEDS ORDERED: Dextrose 5%-0.9% NaCl 1,000 ML IV SCH (11:15)
--- NOTE | 2020-02-14 12:42 | CR ---
Chest: Portable view of the chest was obtained. Comparison: Prior chest x-ray of 03/01/17. Heart size is normal. Upper mediastinum is normal. Lungs are clear with no acute parenchymal change. Pacemaker is noted. Scoliosis is noted within the spine. Impression: 1. Nothing acute is seen on portable chest x-ray. Diagnostic code #2 This report was dictated in MDT
[2020-02-14] MEDS ORDERED: Aspirin 81 MG Tab.Chew PO ONE (13:18)
[2020-02-14] MEDS ORDERED: Furosemide 40 MG/4 ML VIAL IVPUSH ONE (13:56)
[2020-02-14] MEDS ORDERED: Acetaminophen 325 MG Tab PO ONE (15:02)
== END 2020-02-14 17:03 ==
LOC: JD.ED 10:49
DX: R55 Syncope and collapse (principal); I11.0 Hypertensive heart disease with heart failure; I50.9 Heart failure, unspecified; I87.2 Venous insufficiency (chronic) (peripheral); I25.2 Old myocardial infarction; D72.829 Elevated white blood cell count, unspecified; Z86.711 Personal history of pulmonary embolism; Z79.01 Long term (current) use of anticoagulants; Z86.718 Personal history of other venous thrombosis and embolism; Z79.899 Other long term (current) drug therapy; Z20.828 Contact with and (suspected) exposure to other viral communicable diseases
CPT/HCPCS: 36415; 71045; 80053; 81001; 82550; 82553; 82728; 82962; 83615; 83735; 83880; 84484; 85025; 85610; 85652; 85730; 86140; 87040; 87077; 87086; 87186; 93005; 96361; 96374; 99285; A9270; J1940; J7042; U0002; 93010

== ENCOUNTER 2021-05-06 06:55 | Day surgery (SDC) | payer MEDICARE, OTHER ==
[2021-05-06] MEDS: Polymyxin B/Trimethoprim 10 ML Bottle EYERT SCH ×4 (07:16→08:39)
[2021-05-06] MEDS: Brimonidine 0.2% Ophth Soln 5 ML Bottle EYERT SCH ×4 (07:21→08:39)
--- NOTE | 2021-05-06 07:21 | PCM.PREANE ---
Preanesthetic Assessment - Anesthesia/Transfusion/Family Hx Anesthesia History: Prior Anesthesia Without Reaction (MAC anesthetics as well and she is aware) Family History of Anesthesia Reaction: No Transfusion History: No Prior Transfusion(s) Intubation History: Unknown - Review of Systems General: No Symptoms Pulmonary: Shortness of Breath (with exertion) Cardiovascular: No Symptoms Gastrointestinal: No Symptoms Neurological: No Symptoms Other: Reports: None - Physical Assessment NPO Status Date: 05/05/21 NPO Status Time: 18:15 ASA Class: 2 Mental Status: Alert & Oriented x3 Airway Class: Mallampati = 2 Dentition: Reports: Dentures (upper and lower) Thyro-Mental Finger Breadths: 3 Mouth Opening Finger Breadths: 3 ROM/Head Extension: Full Lungs: Clear to Auscultation, Normal Respiratory Effort Cardiovascular: Regular Rate, Regular Rhythm - Allergies Allergies/Adverse Reactions: Allergies Allergy/AdvReac Type Severity Reaction Status Date / Time No Known Allergies Allergy Verified 05/05/21 18:06 - Acknowledgements Anesthesia Type Planned: MAC Pt an Appropriate Candidate for the Planned Anesthesia: Yes Alternatives and Risks of Anesthesia Discussed w Pt/Guardian: Yes Pt/Guardian Understands and Agrees with Anesthesia Plan: Yes PreAnesthesia Questionnaire HEENT History: Reports: Cataract Cardiovascular History: Reports: Hypertension, Pacemaker, SOB on Exertion Other Cardiovascular History: Pacemaker Respiratory History: Reports: PE, Other (See Below) (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 This is the reason apparently she is on Coumadin long-term) Immunologic History: Reports: None Oncologic (Cancer) History: Reports: None Dermatologic History: Reports: None - Infectious Disease History Infectious Disease History: Reports: Chicken Pox, Measles, Mumps - Past Surgical History Head Surgeries/Procedures: Reports: None HEENT Surgical History: Reports: Tonsillectomy Other HEENT Surgeries/Procedures: Pt wears glasses. Cardiovascular Surgical History: Reports: Pacer Respiratory Surgical History: Reports: None GI Surgical History: Reports: None Female Surgical History: Reports: None Male Surgical History: Reports: None Endocrine Surgical History: Reports: None Neurological Surgical History: Reports: None Musculoskeletal Surgical History: Reports: Other (See Below) Other Musculoskeletal Surgeries/Procedures:: ankle fracture with surgery Oncologic Surgical History: Reports: None Dermatological Surgical History: Reports: None - SUBSTANCE USE Tobacco Use Status *Q: Never Tobacco User - HOME MEDS Home Medications: Home Meds Calcium Carbonate [Calcium] 500 mg PO TID 09/04/15 [History] Lisinopril/Hydrochlorothiazide [Lisinopril-Hctz 20-25 mg Tab] 20 - 25 mg PO DAILY 09/04/15 [History] Furosemide [Lasix] 20 mg PO DAILY #30 tablet 03/01/17 [Rx] Red Yeast Rice 1 tab PO DAILY 03/01/17 [History] Warfarin [Coumadin] 2.5 mg PO SUTUTHSA 03/01/17 [History] Warfarin [Coumadin] 5 mg PO MOWEFR 03/01/17 [History] Aloe Vera 25 mg PO DAILY 08/04/17 [History] atorvaSTATin [Lipitor] 10 mg PO DAILY 08/04/17 [History] - CURRENT (IN HOUSE) MEDS Current Meds: Current Medications Brimonidine Tartrate (Brimonidine 0.2% Ophth Soln 5 Ml Bottle) 0 ml EYERT ASDIRECTED MITRA Stop: 05/06/21 18:00 Cefuroxime Sodium (Cefuroxime 10 Mg/Ml Syringe) 0 mg EYERT ASDIRECTED MITRA Stop: 05/06/21 18:00 Lidocaine HCl (Lidocaine 1% Pf 2 Ml Sdv) 0 ml INJECT ASDIRECTED MITRA Stop: 05/06/21 18:00 Phenylephrine HCl (Phenylephrine 2.5% Ophth Soln 2 Ml Bot) 0 ml EYERT ASDIRECTED MITRA Stop: 05/06/21 18:00 Pilocarpine HCl (Pilocarpine 4% Ophth Soln 15 Ml Bot) 0 ml EYERT ASDIRECTED MITRA Stop: 05/06/21 18:00 Polymyxin/Trimethoprim Sulfate (Polymyxin B/Trimethoprim 10 Ml Bottle) 0 ml EYERT ASDIRECTED MITRA Stop: 05/06/21 18:00 Tetracaine HCl (Tetracaine Hcl/Pf 0.5% 4 Ml Bottle) 0 ml EYEBOTH ASDIRECTED MITRA Stop: 05/06/21 18:00 Tropicamide (Tropicamide 1% Ophth Soln 15 Ml Bottle) 0 ml EYERT ASDIRECTED MITRA Stop: 05/06/21 18:00
[2021-05-06] MEDS: Phenylephrine 2.5% Ophth Soln 2 ML Bot EYERT SCH ×6 (07:25→08:33)
[2021-05-06] MEDS: Tropicamide 1% Ophth Soln 15 ML Bottle EYERT SCH ×4 (07:30→08:01)
[2021-05-06] MEDS: Tetracaine HCl/PF 0.5% 4 ML Bottle EYEBOTH SCH ×3 (08:10→08:33)
[2021-05-06] MEDS: Lidocaine 1% PF 2 ML SDV INJECT SCH ×2 (08:24→08:33)
[2021-05-06] MEDS: Cefuroxime 10 MG/ML SYRINGE EYERT SCH ×2 (08:33→08:37)
[2021-05-06] MEDS: Pilocarpine 4% Ophth Soln 15 ML Bot EYERT SCH ×2 (08:34→08:39)
--- NOTE | 2021-05-06 08:38 | PCM48HPAN ---
Post Anesthesia Note - EVALUATION WITHIN 48HRS OF ANESTHETIC Vital Signs in Normal Range: Yes Patient Participated in Evaluation: Yes Respiratory Function Stable: Yes Airway Patent: Yes Cardiovascular Function Stable: Yes Hydration Status Stable: Yes Pain Control Satisfactory: Yes Nausea and Vomiting Control Satisfactory: Yes Mental Status Recovered: Yes Vital Signs: Last Vital Signs Temp 36.6 C 05/06/21 07:05 Pulse 63 05/06/21 07:05 Resp 16 05/06/21 07:05 BP 153/59 H 05/06/21 07:05 Pulse Ox 95 05/06/21 07:05
[2021-05-06 08:59] VITALS: BP 154/59; PULSE 61
== END 2021-05-06 08:52 | disposition home or self-care (01) ==
LOC: JD.SDS 06:55
PROVIDERS: ATTEND Ophthalmology
DX: H25.813 Combined forms of age-related cataract, bilateral (principal); F41.9 Anxiety disorder, unspecified; I10 Essential (primary) hypertension; Z98.890 Other specified postprocedural states; M06.9 Rheumatoid arthritis, unspecified; Z79.899 Other long term (current) drug therapy
CPT/HCPCS: 66984; J0697; C1780

== ENCOUNTER 2022-01-14 10:12 | Inpatient (IN) | payer MEDICARE, OTHER, MEDICAID ==
[2022-01-14] MEDS ORDERED: Acetaminophen 325 MG Tab PO ONE (10:42)
[2022-01-14] MEDS ORDERED: Dextrose 5%-0.9% NaCl 1,000 ML IV SCH ×2 (10:45→12:15)
[2022-01-14] MEDS ORDERED: Sodium Chloride 0.9% 10 ML Syringe FLUSH PRN (12:14)
[2022-01-14] MEDS ORDERED: Iopamidol 755 Mg/ML 100 ML Bottle IVPUSH ONE (12:14)
[2022-01-14] MEDS ORDERED: Sodium Chloride 0.9% 100 ML IV SCH (12:15)
[2022-01-14] MEDS ORDERED: Docusate Sodium 100 MG Cap PO PRN (15:07)
[2022-01-14] MEDS ORDERED: Ondansetron 4 MG/2 ML SDV IV PRN (15:07)
[2022-01-14] MEDS ORDERED: Sodium Chloride 0.9% 1,000 ML IV SCH (16:45)
[2022-01-14] MEDS: cefTRIAXone 1 GM in Sodium Chloride 0.9% 100 ML IV SCH (16:56)
[2022-01-15] MEDS: Heparin Sodium 5,000 Units/ML Vial SUBCUT SCH ×2 (08:01→15:49)
[2022-01-15] MEDS: oxyCODONE 5 MG Tab PO PRN ×2 (13:23→21:48)
[2022-01-15] MEDS: cefTRIAXone 1 GM in Sodium Chloride 0.9% 100 ML IV SCH (15:49)
[2022-01-16] MEDS: Heparin Sodium 5,000 Units/ML Vial SUBCUT SCH ×4 (04:15→21:21)
[2022-01-16] MEDS ORDERED: Magnesium Sulfate/Water 2 GM/50 ML BAG IV ONE (11:31)
[2022-01-16] MEDS: oxyCODONE 5 MG Tab PO PRN (13:24)
[2022-01-16] MEDS: cefTRIAXone 1 GM in Sodium Chloride 0.9% 100 ML IV SCH (14:46)
[2022-01-17] MEDS: Heparin Sodium 5,000 Units/ML Vial SUBCUT SCH (04:33)
[2022-01-17] MEDS ORDERED: Calcium Carbonate 500 MG Tab.Chew PO PRN (12:10)
[2022-01-17] MEDS ORDERED: Morphine 2 MG/ML SYRINGE IVPUSH PRN (12:12)
[2022-01-17] MEDS: Acetaminophen 325 MG Tab PO PRN ×2 (12:12→20:27)
[2022-01-17] MEDS: Lidocaine 4% 1 each Patch TOP SCH (15:07)
[2022-01-17] MEDS: oxyCODONE 5 MG Tab PO PRN (22:56)
[2022-01-18] MEDS: Heparin Sodium 5,000 Units/ML Vial SUBCUT SCH (00:30)
[2022-01-18] MEDS: Lidocaine 4% 1 each Patch TOP SCH (09:13)
[2022-01-18] MEDS: oxyCODONE 5 MG Tab PO PRN ×3 (10:23→21:27)
[2022-01-19] MEDS: oxyCODONE 5 MG Tab PO PRN ×2 (02:41→09:47)
[2022-01-19] MEDS: Lidocaine 4% 1 each Patch TOP SCH (09:46)
[2022-01-19] MEDS: Acetaminophen 325 MG Tab PO SCH ×3 (13:50→23:26)
[2022-01-20] MEDS: Acetaminophen 325 MG Tab PO SCH ×4 (06:43→23:32)
[2022-01-20] MEDS: Lidocaine 4% 1 each Patch TOP SCH (08:01)
[2022-01-20] MEDS: oxyCODONE 5 MG Tab PO PRN ×2 (08:01→14:34)
[2022-01-21] MEDS: LORazepam 1 MG Tab PO PRN ×2 (02:54→13:57)
[2022-01-21] MEDS: Acetaminophen 325 MG Tab PO SCH ×2 (05:47→13:22)
[2022-01-21] MEDS: Lidocaine 4% 1 each Patch TOP SCH (10:15)
[2022-01-21] MEDS: oxyCODONE 5 MG Tab PO PRN (13:57)
[2022-01-21] MEDS ORDERED: Morphine 10 MG/0.5 ML Oral Syringe PO PRN (14:20)
[2022-01-21] MEDS ORDERED: Ondansetron 4 MG Tab.DIS PO PRN (14:30)
[2022-01-21] MEDS ORDERED: oxyCODONE 5 MG Tab PO PRN (14:30)
[2022-01-21] MEDS: Acetaminophen/HYDROcodone 325-5 MG Tab PO SCH ×2 (15:36→22:13)
[2022-01-22] MEDS: Acetaminophen/HYDROcodone 325-5 MG Tab PO SCH ×4 (05:10→21:48)
[2022-01-22] MEDS: Lidocaine 4% 1 each Patch TOP SCH (09:35)
[2022-01-23] MEDS: LORazepam 1 MG Tab PO PRN (01:18)
[2022-01-23] MEDS: Acetaminophen/HYDROcodone 325-5 MG Tab PO SCH ×4 (05:07→21:00)
[2022-01-23] MEDS: Lidocaine 4% 1 each Patch TOP SCH (09:14)
[2022-01-24] MEDS: Acetaminophen/HYDROcodone 325-5 MG Tab PO SCH ×4 (04:54→22:54)
[2022-01-24] MEDS: Lidocaine 4% 1 each Patch TOP SCH (09:04)
[2022-01-24] MEDS: LORazepam 1 MG Tab PO PRN ×2 (10:19→17:58)
[2022-01-25] MEDS: LORazepam 1 MG Tab PO PRN ×2 (01:57→19:43)
[2022-01-25] MEDS: Acetaminophen/HYDROcodone 325-5 MG Tab PO SCH ×4 (05:53→22:07)
[2022-01-25] MEDS: Lidocaine 4% 1 each Patch TOP SCH (09:21)
[2022-01-26] MEDS: LORazepam 1 MG Tab PO PRN (03:00)
[2022-01-26] MEDS: Acetaminophen/HYDROcodone 325-5 MG Tab PO SCH ×2 (03:00→09:34)
[2022-01-26] MEDS: Lidocaine 4% 1 each Patch TOP SCH (09:34)
[2022-01-26] MEDS ORDERED: Lidocaine 4% 1 each Patch TOP ONE ×2 (11:30)
[2022-01-26 12:55] VITALS: BP 142/93; PULSE 85
== END 2022-01-26 13:19 | DRG 683 ==
LOC: JD.ED 10:12 → JD.MS 15:02
PROVIDERS: ADMIT Emergency Medicine; ATTEND Internal Medicine
DX: R53.1 Weakness (principal); I50.9 Heart failure, unspecified; R68.81 Early satiety; N17.9 Acute kidney failure, unspecified; N30.01 Acute cystitis with hematuria; D72.828 Other elevated white blood cell count; R74.02 Elevation of levels of lactic acid dehydrogenase [LDH]; W19.XXXA Unspecified fall, initial encounter; I13.0 Hypertensive heart and chronic kidney disease with heart failure and stage 1 through stage 4 chronic kidney disease, or unspecified chronic kidney disease; C78.6 Secondary malignant neoplasm of retroperitoneum and peritoneum; E86.0 Dehydration; M19.90 Unspecified osteoarthritis, unspecified site; G89.29 Other chronic pain; M54.9 Dorsalgia, unspecified; R29.6 Repeated falls; Z79.82 Long term (current) use of aspirin; R79.89 Other specified abnormal findings of blood chemistry; Z66 Do not resuscitate; I12.9 Hypertensive chronic kidney disease with stage 1 through stage 4 chronic kidney disease, or unspecified chronic kidney disease; M54.50 Low back pain, unspecified; Z20.822 Contact with and (suspected) exposure to COVID-19; N18.31 Chronic kidney disease, stage 3a; Z95.0 Presence of cardiac pacemaker; Z51.5 Encounter for palliative care; Z86.711 Personal history of pulmonary embolism; Z79.01 Long term (current) use of anticoagulants; Z79.899 Other long term (current) drug therapy; Z90.89 Acquired absence of other organs; Z97.3 Presence of spectacles and contact lenses; W18.30XA Fall on same level, unspecified, initial encounter; Y92.009 Unspecified place in unspecified non-institutional (private) residence as the place of occurrence of the external cause
CPT/HCPCS: 36415; 36600; 71045; 71275; 74177; 80053; 81001; 82803; 83605; 83735; 83880; 84484; 85007; 85027; 85379; 85610; 86140; 87040 ×2; 87086; 87088; 87186; 93005; A9270; J3490; J7042; Q9967; 80048; 85025; 93010; 94760; 94761; 96360; 96361; 97162-GP; 97166-GO; 97530-GP; 99223; 99232; 99233; 99238; 99285; 99285-25; J0696; J1644; J2270; J3475; J7030; U0002